=== PATIENT | female | born 1975 | race Caucasian/White ===

== ENCOUNTER 2019-08-11 15:36 | Emergency (ER) | payer BC ==
[~2019-08-11] VITALS: Ht 160 cm; Wt 98.0 kg
[2019-08-11] MEDS ORDERED: ACET-683 PO (15:45)
[2019-08-11] MEDS ORDERED: IBUPROFEN 600MG TAB PO ONE (18:15)
[2019-08-11] MEDS ORDERED: LIDOCAINE 4% CREAM 5GM (LMX4) TOP ONE (18:15)
[2019-08-11] MEDS ORDERED: AUGMENTIN 875 MG TAB PO ONE (18:15)
[2019-08-11] MEDS ORDERED: CIPRODEX OTIC SUSP 7.5ML AS STA (18:22)
[2019-08-11 18:42] VITALS: BP 170/85
[2019-08-11] MEDS ORDERED: ASPE16CR TOP (18:51)
[2019-08-11] MEDS ORDERED: CIPRODEX AS (18:51)
[2019-08-11] MEDS ORDERED: IBUP-1022 PO (18:51)
[2019-08-11] MEDS ORDERED: AUGM875T28 PO (18:51)
[2019-08-11] MEDS ORDERED: CIPRODEX OTIC SUSP 7.5ML AS SCH (21:00)
[2019-10-27] MEDS ORDERED: ATOR1TAB19 PO (13:48)
[2019-10-27] MEDS ORDERED: LISI10TA4 PO (13:48)
[2019-10-27] MEDS ORDERED: METF500T13 PO (13:48)
[2019-10-27] MEDS ORDERED: METO37.5 PO (13:48)
== END 2019-08-11 18:56 | disposition home or self-care (01) ==
LOC: M ED 15:36
DX: H72.92 Unspecified perforation of tympanic membrane, left ear (principal); R59.0 Localized enlarged lymph nodes; Z79.899 Other long term (current) drug therapy; Z87.891 Personal history of nicotine dependence

== ENCOUNTER → 2019-10-28 | Outpatient (CLI) | payer BC ==
[~2019-10-28] MED LIST: ACET-683 PO; ALL10TAB2 PO; ASPE16CR TOP; ATOR1TAB19 PO; AUGM875T28 PO; CIPRODEX AS; IBUP-1022 PO; INDO-16 PO; LISI10TA4 PO; MECL-86 PO; METF500T13 PO; METO37.5 PO; ZONI50CA11 PO
== END ==
LOC: M LABSMTC 13:10
PROVIDERS: ATTEND Anesthesiology
DX: Z01.818 Encounter for other preprocedural examination (principal); Z20.828 Contact with and (suspected) exposure to other viral communicable diseases
CPT/HCPCS: C9803; U0003

== ENCOUNTER 2019-11-02 09:51 | Day surgery (SDC) | payer BC ==
[~2019-11-02] VITALS: Ht 162.6 cm; Wt 89.6 kg
[~2019-11-02 09:51] MED LIST changes: -ALL10TAB2 PO; -INDO-16 PO; +LIDOCAINE 1% MDV 20ML VIAL SQ PRN; +LR 1,000 ML IV ONE; -MECL-86 PO; -ZONI50CA11 PO
[2019-11-02] MEDS ORDERED: fentaNYL 100 MCG/2 ML INJECTION (J3010) As Ordered ONE ×2 (12:04→13:04)
[2019-11-02] MEDS ORDERED: MIDAZOLAM INJ 2MG/2ML VIAL (J2250 PER 1MG) As Ordered ONE (12:04)
[2019-11-02] MEDS ORDERED: propofoL 200 MG/20 ML VIAL As Ordered ONE (12:04)
[2019-11-02] MEDS ORDERED: LIDOCAINE 2% 100MG/5ML SDV (FOR ANES.) As Ordered ONE (12:04)
[2019-11-02] MEDS ORDERED: ROCURONIUM BROMIDE 50 MG/5 ML VIAL As Ordered ONE ×2 (12:05→13:39)
[2019-11-02] MEDS ORDERED: LIDOCAINE W/EPINEPHRINE 1% 20ML VIAL As Ordered ONE (12:18)
[2019-11-02] MEDS ORDERED: EPINEPHrine 1MG/ML INJ 30ML MD-VIAL As Ordered ONE (12:18)
[2019-11-02] MEDS ORDERED: dexameTHASONE 4 MG/ML 1ML VIAL (J1100 PER 1MG) As Ordered ONE (12:46)
[2019-11-02] MEDS ORDERED: CIPRODEX OTIC SUSP 7.5ML As Ordered ONE (14:08)
[2019-11-02] MEDS ORDERED: ONDANSETRON 4MG/2ML VIAL As Ordered ONE (14:15)
[2019-11-02] MEDS ORDERED: SUGAMMADEX SODIUM 500 MG/5 ML VIAL (BRIDION) As Ordered ONE (14:22)
[2019-11-02] MEDS: oxyCODONE 5MG TAB PO PRN ×2 (15:13→15:49)
[2019-11-02] MEDS ORDERED: ONDANSETRON 4MG/2ML VIAL IV PRN (15:15)
[2019-11-02] MEDS ORDERED: LR 1,000 ML IV SCH ×2 (15:15→16:15)
[2019-11-02] MEDS ORDERED: fentaNYL 100 MCG/2 ML INJECTION (J3010) IV PRN (15:15)
[2019-11-02] MEDS ORDERED: ACETAMINOPH W/CODEINE #3 TAB UD PO PRN (16:15)
[2019-11-02 16:28] VITALS: BP 145/79
--- NOTE | 2019-11-22 09:29 | RO ---
DATE OF OPERATION: 11/02/2019 PREOPERATIVE DIAGNOSIS: Chronic left tympanic membrane perforation. POSTOPERATIVE DIAGNOSIS: Chronic left tympanic membrane perforation. PROCEDURE: Left tympanoplasty. SURGEON: Etienne Walker MD FINDINGS: Moderate size perforation anteriorly of the left tympanic membrane. PROCEDURE: Under general anesthesia with the patient intubated the patient was prepped and draped in usual manner. I cleaned the ear with Betadine and saline. I infiltrated with Lidocaine and Epinephrine. I started by making a posterior tympanomeatal incision and then lateral incisions toward the os. I then reflected the skin posteriorly and then made postauricular incision joining the two dissections. I harvested temporalis fascia for the graft. This was then placed aside. I then elevated the periosteum down into the canal and then opened up the ear. I made an incision anteriorly adjacent to the tympanic membrane and then elevated the canal anteriorly from medial to lateral. Once this was done I used a drill to drill down the anterior canal wall to expose it so I could see well. Once this was all done I then took pick and removed the lateral epithelium off the tympanic membrane. Once this was done I then mobilized the malleus by making an incision on the remaining drum down to the tip of the malleus. After that I cut the drum to its appropriate size and then made an incision superiorly so that I could wrap better on the head of the malleus. I then placed graft on top of the tympanic membrane tucking the most central portion around the head of the malleus. I then made sure the drum was tucked anteriorly inferiorly adjacent to the remaining drum. I put some dry Gelfoam anteriorly. I then cut some Silastic sheeting and placed this on top of the tympanic membrane and then packed more Gelfoam anteriorly to keep the anterior part of the drum. Before I did this I returned the canal wall to its original position. Once this was done, everything went good. I placed Iodoform gauze in the ear canal to stent it open and then closed the postauricular incision with 3-0 chromic and 3-0 Prolene. The patient tolerated the procedure well. Minimal blood loss. The wound was dressed. The patient was extubated and transferred to recovery room in excellent condition. MK
--- NOTE | 2019-12-15 08:24 | RO ---
DATE OF OPERATION: 11/02/2019 PREOPERATIVE DIAGNOSIS: Chronic left tympanic membrane perforation. POSTOPERATIVE DIAGNOSIS: Chronic left tympanic membrane perforation. PROCEDURE: Left tympanoplasty. SURGEON: Etienne Walker MD BOARD CERTIFIED BEHAVIORAL ANALYST: ANESTHESIA: General. FINDINGS: Moderate size perforation anteriorly of the left tympanic membrane. DESCRIPTION OF PROCEDURE: Under general anesthesia with the patient intubated the patient was prepped and draped in usual manner. I cleaned the ear with Betadine and saline. I infiltrated with Lidocaine and Epinephrine. I started by making a posterior tympanomeatal incision and then lateral incisions toward the os. I then reflected the skin posteriorly and then made postauricular incision joining the two dissections. I harvested temporalis fascia for the graft. This was then placed aside. I then elevated the periosteum down into the canal and then opened up the ear. I made an incision anteriorly adjacent to the tympanic membrane and then elevated the canal anteriorly from medial to lateral. Once this was done I used a drill to drill down the anterior canal wall to expose it so I could see well. Once this was all done I then took pick and removed the lateral epithelium off the tympanic membrane. Once this was done I then mobilized the malleus by making an incision on the remaining drum down to the tip of the malleus. After that I cut the drum to its appropriate size and then made an incision superiorly so that I could wrap better on the head of the malleus. I then placed graft on top of the tympanic membrane tucking the most central portion around the head of the malleus. I then made sure the drum was tucked anteriorly inferiorly adjacent to the remaining drum. I put some dry Gelfoam anteriorly. I then cut some Silastic sheeting and placed this on top of the tympanic membrane and then packed more Gelfoam anteriorly to keep the anterior part of the drum. Before I did this I returned the canal wall to its original position. Once this was done, everything went good. I placed Iodoform gauze in the ear canal to stent it open and then closed the postauricular incision with 3-0 chromic and 3-0 Prolene. The patient tolerated the procedure well. Minimal blood loss. The wound was dressed. The patient was extubated and transferred to recovery room in excellent condition. MK
== END 2019-11-02 16:28 | disposition home or self-care (01) ==
LOC: M SDC 09:51
PROVIDERS: ATTEND Otolaryngology
DX: H72.92 Unspecified perforation of tympanic membrane, left ear (principal); K21.9 Gastro-esophageal reflux disease without esophagitis; E11.9 Type 2 diabetes mellitus without complications; I10 Essential (primary) hypertension; E78.5 Hyperlipidemia, unspecified; Z79.84 Long term (current) use of oral hypoglycemic drugs; Z79.899 Other long term (current) drug therapy
CPT/HCPCS: 69620; 81025; J1100; J2250; J2405; J3010

== ENCOUNTER 2019-12-08 14:30 | Emergency (ER) | payer BC ==
[~2019-12-08] VITALS: Ht 162.6 cm; Wt 92.1 kg
[~2019-12-08 14:30] MED LIST changes: -LIDOCAINE 1% MDV 20ML VIAL SQ PRN; -LR 1,000 ML IV ONE
[2019-12-08] MEDS ORDERED: MECL-86 PO (14:38)
[2019-12-08] MEDS ORDERED: ZONI50CA11 PO (14:38)
[2019-12-08] MEDS ORDERED: INDO-16 PO (14:38)
[2019-12-08] MEDS ORDERED: AUGM875T28 PO (15:12)
[2019-12-08] MEDS ORDERED: ALL10TAB2 PO (15:12)
[2019-12-08 15:24] VITALS: BP 164/92
== END 2019-12-08 15:28 | disposition home or self-care (01) ==
LOC: M ED 14:30
DX: J01.90 Acute sinusitis, unspecified (principal); Z98.890 Other specified postprocedural states; E11.9 Type 2 diabetes mellitus without complications; I10 Essential (primary) hypertension; F17.290 Nicotine dependence, other tobacco product, uncomplicated; Z79.899 Other long term (current) drug therapy; Z79.84 Long term (current) use of oral hypoglycemic drugs

== ENCOUNTER 2024-04-05 14:31 | Emergency (ER) | payer MEDICAID, OTHER ==
[~2024-04-05] VITALS: Ht 160 cm; Wt 106.7 kg
[~2024-04-05 14:31] MED LIST changes: +ALL10TAB2 PO; -ASPE16CR TOP; +ATOR1TAB19; +CETI-24; +CIPR7.5D5 AS; -CIPRODEX AS; +CYCL5TAB4 PO; +DICY-61 PO; +FLUO40CA; +HYDR12.55; +INDO-16 PO; +LIDO76.52 TOP; +LISI10TA22 PO; -LISI10TA4 PO; +LOSA50TA28; +MECL-86 PO; +MELO7.5T35; +METF500T13; +NAPR-837 PO; +ONDA-282 PO; +OXYC1TAB23; +ZONI50CA11 PO
[2024-04-05] MEDS ORDERED: NAPR220C14 PO (16:59)
[2024-04-05 18:35] VITALS: TEMP 97.3; O2SAT 100
[2024-04-05] MEDS: ACETAMINOPHEN 500 MG TAB PO ONE (18:42)
[2024-04-05 19:34] VITALS: BP 148/76
== END 2024-04-05 19:40 | disposition home or self-care (01) ==
LOC: M ED 14:31
DX: S83.91XA Sprain of unspecified site of right knee, initial encounter (principal); Y92.410 Unspecified street and highway as the place of occurrence of the external cause; Y93.9 Activity, unspecified; Y99.9 Unspecified external cause status; F17.290 Nicotine dependence, other tobacco product, uncomplicated; Z79.1 Long term (current) use of non-steroidal anti-inflammatories (NSAID)

== ENCOUNTER 2024-04-24 13:02 | Inpatient (IN) | payer MEDICAID, OTHER ==
[~2024-04-24] VITALS: Ht 162.6 cm; Wt 106.9 kg
[~2024-04-24 13:02] MED LIST changes: +NAPR220C14 PO
[2024-04-24 13:54] LABS: HEMATOCRIT 40.2 % (36.0-47.0); HEMOGLOBIN 13.2 g/dl (12.0-15.5); MEAN CORPUSCULAR HEMOGLOBIN 29.4 pg (27.0-33.0); MEAN CORPUSCULAR HGB CONC 32.8 g/dl (32.0-36.5); MEAN CORPUSCULAR VOLUME 89.5 fl (80.0-96.0); PLATELET COUNT, AUTOMATED 385 10^3/uL (150-450); RED BLOOD COUNT 4.49 10^6/uL (4.00-5.40); WHITE BLOOD COUNT 9.9 10^3/uL (4.0-10.0)
[2024-04-24 14:12] LABS: PHENCYCLIDINE URINE NEGATIVE (NEGATIVE)
[2024-04-24 14:13] LABS: AMPHETAMINES LEVEL URINE NEGATIVE (NEGATIVE); BARBITURATES URINE NEGATIVE (NEGATIVE); BENZODIAZEPINES URINE NEGATIVE (NEGATIVE); CANNABINOIDS URINE NEGATIVE (NEGATIVE); COCAINE METABOLITE URINE NEGATIVE (NEGATIVE); METHADONE URINE NEGATIVE (NEGATIVE); OPIATES URINE NEGATIVE (NEGATIVE)
[2024-04-24 14:15] LABS: ETHYL ALCOHOL (ETHANOL) < 0.003 % (0.000-0.010)
[2024-04-24 14:17] LABS: ALBUMIN 3.5 G/DL (3.2-5.2); ALKALINE PHOSPHATASE 94 U/L (35-104); ALT/SGPT 21 U/L (7.0-40); AST/SGOT 12 U/L (<34); BILIRUBIN,DIRECT 0.2 MG/DL (<0.4); BILIRUBIN,TOTAL 0.5 MG/DL (0.3-1.2); BLOOD UREA NITROGEN 10 MG/DL (9-23); CALCIUM LEVEL 8.7 MG/DL (8.5-10.1); CARBON DIOXIDE LEVEL 25 MMOL/L (20-31); CHLORIDE LEVEL 102 MMOL/L (98-107); GLOMERULAR FILTRATION RATE > 60.0 (>58); GLUCOSE, FASTING 156 MG/DL (60-100); POTASSIUM SERUM 3.7 MMOL/L (3.5-5.1); SALICYLATE LEVEL < 3.0 MG/DL (<30); SODIUM LEVEL 137 MMOL/L (136-145); TOTAL PROTEIN 7.3 G/DL (5.7-8.2)
[2024-04-24 14:19] LABS: THYROID STIMULATING HORMONE 1.856 uIU/ML (0.55-4.78)
[2024-04-24 14:29] LABS: HCG, SERUM QUALITATIVE NEGATIVE (NEGATIVE)
[2024-04-24] MEDS ORDERED: LOSA50TA28 PO (15:10)
[2024-04-24] MEDS ORDERED: HOME MED LIST COMPLETE! XX SCH (15:20)
[2024-04-24 16:21] VITALS: BP 154/98; TEMP 97.1; O2SAT 100
[2024-04-24] MEDS ORDERED: OLANZapine ORAL DISINTEGRATING TAB 5MG PO PRN (17:05)
[2024-04-24] MEDS ORDERED: MOM 30ML SUSPENSION UDC PO PRN (17:05)
[2024-04-24] MEDS: NICOTINE 21MG/24HR 1 EA TRANSDERMAL TD SCH (18:12)
[2024-04-24] MEDS: IBUPROFEN 400MG TAB PO PRN (18:58)
[2024-04-24] MEDS: traZODone 50 MG TAB PO PRN (20:14)
[2024-04-24] MEDS: LOSARTAN 50MG TABLET PO SCH (20:14)
[2024-04-24] MEDS: metFORMIN (GLUCOPHAGE) 500MG TAB PO SCH (20:14)
[2024-04-25 06:37] VITALS: BP 129/75; TEMP 97.5; O2SAT 98
[2024-04-25] MEDS: ESCITALOPRAM OXALATE 10 MG TAB (LEXAPRO) PO SCH (09:29)
[2024-04-25 15:12] VITALS: BP 137/79; TEMP 97.4; O2SAT 97
[2024-04-26 06:35] VITALS: BP 143/74; TEMP 97.3; O2SAT 98
[2024-04-26 08:52] VITALS: BP 139/73
[2024-04-26 15:51] VITALS: BP 160/88; TEMP 97.2; O2SAT 100
[2024-04-27 06:40] VITALS: BP 169/77; TEMP 97.2; O2SAT 100
[2024-04-27 08:39] VITALS: BP 140/96
[2024-04-27] MEDS: ACETAMINOPHEN 325 MG TAB PO PRN (11:44)
[2024-04-27 15:21] VITALS: BP 168/84; TEMP 97.7; O2SAT 98
[2024-04-28 06:29] VITALS: BP 160/100; TEMP 97; O2SAT 99
[2024-04-28 08:37] VITALS: BP 136/96
[2024-04-28 16:25] VITALS: BP 148/92; TEMP 97.3; O2SAT 99
[2024-04-29 06:19] VITALS: BP 158/88; TEMP 97.2; O2SAT 98
[2024-04-29] MEDS: OMEPRAZOLE 20MG CAP PO SCH (11:04)
[2024-04-29 15:26] VITALS: BP 140/82; TEMP 97.6; O2SAT 100
[2024-04-29 22:06] VITALS: BP 159/88; TEMP 97.6; O2SAT 100
[2024-04-30 06:47] VITALS: BP 139/91; TEMP 97.4; O2SAT 97
[2024-04-30] MEDS: hydrOXYzine 50 MG TAB PO PRN (09:05)
[2024-04-30 17:21] VITALS: BP 144/86; TEMP 97.4; O2SAT 99
[2024-05-01 06:41] VITALS: BP 166/80; TEMP 96.8; O2SAT 97
[2024-05-01 08:21] VITALS: BP 132/90
[2024-05-01 15:31] VITALS: BP 148/80; TEMP 97.1; O2SAT 100
[2024-05-02 06:32] VITALS: BP 142/80; TEMP 97.2; O2SAT 99
[2024-05-02 15:21] VITALS: BP 160/90; TEMP 97.6; O2SAT 96
[2024-05-03 06:22] VITALS: BP 164/90; TEMP 97.1; O2SAT 99
[2024-05-03 08:26] VITALS: BP 168/92
[2024-05-03 08:29] VITALS: BP 168/92
[2024-05-03] MEDS ORDERED: HYDR50TA70 PO (10:25)
[2024-05-03] MEDS ORDERED: OMEP-173 PO (10:25)
[2024-05-03] MEDS ORDERED: LEXA1TAB PO (10:25)
[2024-05-03] MEDS ORDERED: TRAZ-252 PO (10:25)
== END 2024-05-03 12:27 | disposition home or self-care (01) | DRG 754 ==
LOC: M ED 13:02 → M ED INP 15:13 → M PSY 15:53
PROVIDERS: ADMIT Psychiatry & Neurology Psychiatry; ATTEND Psychiatry & Neurology Psychiatry
DX: F32.A Depression, unspecified (principal); R45.851 Suicidal ideations; K21.9 Gastro-esophageal reflux disease without esophagitis; F43.23 Adjustment disorder with mixed anxiety and depressed mood; E11.9 Type 2 diabetes mellitus without complications; I10 Essential (primary) hypertension; Z79.84 Long term (current) use of oral hypoglycemic drugs; Z63.0 Problems in relationship with spouse or partner; Z79.899 Other long term (current) drug therapy

== ENCOUNTER 2024-11-23 07:05 | Emergency (ER) | payer OTHER ==
[~2024-11-23] VITALS: Ht 162.6 cm; Wt 101.8 kg
[~2024-11-23 07:05] MED LIST changes: +HYDR50TA70 PO; -IBUP-1022 PO; +IBUP600T42 PO; +LEXA1TAB PO; +LOSA50TA28 PO; +OMEP-173 PO; +TRAZ-252 PO
[2024-11-23 07:58] LABS: PLATELET COUNT, AUTOMATED 237 10^3/uL (150-450)
[2024-11-23 08:13] LABS: ETHYL ALCOHOL (ETHANOL) 0.007 % (0.000-0.010)
[2024-11-23 08:15] LABS: ALT/SGPT 16 U/L (7.0-40); AST/SGOT 18 U/L (<34); CALCIUM LEVEL 8.3 MG/DL (8.5-10.1); CARBON DIOXIDE LEVEL 21 MMOL/L (20-31); CHLORIDE LEVEL 102 MMOL/L (98-107); CREATININE FOR GFR 0.68 MG/DL (0.55-1.30); GLOMERULAR FILTRATION RATE > 90.0 (>58); POTASSIUM SERUM 4.1 MMOL/L (3.5-5.1); SALICYLATE LEVEL < 3.0 MG/DL (<30); SODIUM LEVEL 135 MMOL/L (136-145)
[2024-11-23 08:15] LABS: AMPHETAMINES LEVEL URINE NEGATIVE (NEGATIVE); BARBITURATES URINE NEGATIVE (NEGATIVE); BENZODIAZEPINES URINE NEGATIVE (NEGATIVE); CANNABINOIDS URINE NEGATIVE (NEGATIVE); COCAINE METABOLITE URINE NEGATIVE (NEGATIVE); METHADONE URINE NEGATIVE (NEGATIVE); OPIATES URINE NEGATIVE (NEGATIVE); PHENCYCLIDINE URINE NEGATIVE (NEGATIVE)
[2024-11-23 10:11] VITALS: BP 139/84; TEMP 97.6; O2SAT 97
== END 2024-11-23 10:30 | disposition home or self-care (01) ==
LOC: M ED 07:05
DX: F43.20 Adjustment disorder, unspecified (principal); E11.9 Type 2 diabetes mellitus without complications; K21.9 Gastro-esophageal reflux disease without esophagitis; I10 Essential (primary) hypertension; Z79.899 Other long term (current) drug therapy; Z79.84 Long term (current) use of oral hypoglycemic drugs